=== PATIENT | male | born 1955 | race Caucasian/White ===

== ENCOUNTER 2016-04-28 13:18 | Day surgery (SDC) | payer OTHER ==
[~2016-04-28] VITALS: Ht 188 cm; Wt 95.3 kg
[~2016-04-28 13:18] MED LIST: AMITRIPTYLINE H25 MG; AMITRIPTYLINE H25 MG PO; AMITRIPTYLINE100 MG PO; Aspirin Chewable PO; BUSPIRONE HCL10 MG PO; CELEBREX200 MG PO; CELEXA40 MG PO; CITALOPRAM HBR20 MG PO; ELAVIL25 MG PO; ENDOCET 5-3251 EACH PO; Elavil PO; GABAPENTIN300 MG PO; HYDROCHLOROTHIA25 MG PO; HYDROCHLOROTHIAZIDE; HYDROXYZINE HCL25 MG PO; Hydrodiuril,Oretic,E PO; IBUPROFEN800 MG PO; KENALOG,ARISTOC15 GM TP; LISINOPRIL10 MG; LISINOPRIL20 MG PO; LOVENOX40 MG/0.4 SC; OPANA ER10 MG PO; OPANA ER20 MG PO; OXYCONTIN40 MG PO; OXYMORPHONE HCL10 M1 PO; Protonix PO; SENNA-TIME S T1 EACH PO; TRAZODONE HCL50 MG PO; VALIUM10 MG PO; Zestril,Prinivil PO
== END 2016-04-28 15:30 | disposition home or self-care (01) ==
LOC: PAIN 13:18 → SDC 13:45 → PAIN 15:30
DX: M47.892 Other spondylosis, cervical region (principal); M54.2 Cervicalgia; F41.1 Generalized anxiety disorder; I10 Essential (primary) hypertension; M25.50 Pain in unspecified joint; G89.29 Other chronic pain; F17.200 Nicotine dependence, unspecified, uncomplicated
CPT/HCPCS: J1030; J2250; J3010; S0020

== ENCOUNTER 2016-05-05 08:08 | Day surgery (SDC) | payer OTHER ==
[~2016-05-05] VITALS: Ht 188 cm; Wt 95.3 kg
[2016-05-09] MEDS ORDERED: NEXIUM20 MG PO (14:11)
[2016-05-21] MEDS ORDERED: ASPIRIN81 M2 PO (10:37)
== END 2016-05-05 10:09 | disposition home or self-care (01) ==
LOC: PAIN 08:08 → SDC 09:45 → PAIN 09:45
PROC: 3E0X3BZ Introduction of Anesthetic Agent into Cranial Nerves, Percutaneous Approach (ICD-10-PCS; principal; 2016-05-05)
PROC: 3E0X33Z Introduction of Anti-inflammatory into Cranial Nerves, Percutaneous Approach (ICD-10-PCS; principal; 2016-05-05)
DX: M47.812 Spondylosis without myelopathy or radiculopathy, cervical region (principal); M54.2 Cervicalgia; F41.9 Anxiety disorder, unspecified; F17.200 Nicotine dependence, unspecified, uncomplicated; I10 Essential (primary) hypertension; F32.9 Major depressive disorder, single episode, unspecified
CPT/HCPCS: J1030; J2250; J3010; S0020

== ENCOUNTER 2016-09-07 13:16 | Day surgery (SDC) | payer OTHER ==
[~2016-09-07] VITALS: Ht 188 cm; Wt 95.3 kg
[~2016-09-07 13:16] MED LIST changes: +ASPIRIN81 M2 PO; +MOBIC15 MG PO; +NAPROSYN500 MG PO; +NEXIUM20 MG PO; +ZESTRIL20 MG PO
== END 2016-09-07 14:49 | disposition home or self-care (01) ==
LOC: PAIN 13:16 → SDC 13:30 → PAIN 14:49
DX: M47.812 Spondylosis without myelopathy or radiculopathy, cervical region (principal); M54.2 Cervicalgia; I10 Essential (primary) hypertension; F32.9 Major depressive disorder, single episode, unspecified; F17.210 Nicotine dependence, cigarettes, uncomplicated
CPT/HCPCS: J1030; J2250; J3010; S0020

== ENCOUNTER 2016-09-14 11:15 | Day surgery (SDC) | payer OTHER ==
[~2016-09-14] VITALS: Ht 188 cm; Wt 95.5 kg
== END 2016-09-14 13:30 | disposition home or self-care (01) ==
LOC: PAIN 11:15 → SDC 12:00 → PAIN 13:30
DX: M47.812 Spondylosis without myelopathy or radiculopathy, cervical region (principal); M54.2 Cervicalgia; G89.29 Other chronic pain; M79.1 Myalgia; I10 Essential (primary) hypertension; F41.8 Other specified anxiety disorders; F17.210 Nicotine dependence, cigarettes, uncomplicated; K21.9 Gastro-esophageal reflux disease without esophagitis; B18.2 Chronic viral hepatitis C
CPT/HCPCS: J1030; J2250; J3010; S0020

== ENCOUNTER 2017-01-03 21:36 | Inpatient (IN) | payer OTHER ==
[~2017-01-03] VITALS: Ht 188 cm; Wt 95.8 kg
[~2017-01-03 21:36] MED LIST changes: +ATARAX,VISTARIL25 MG PO; +DAILY VALUE1 EACH PO; +ELAVIL50 MG PO; +NEURONTIN300 MG PO
[2017-01-04 10:20] VITALS: BP 118/86
[2017-01-04 17:52] VITALS: BP 112/75
[2017-01-04 19:55] VITALS: BP 116/80
[2017-01-05 00:16] VITALS: BP 170/66
[2017-01-05 04:18] VITALS: BP 116/76
[2017-01-05 05:07] LABS: HEMATOCRIT 34.3 % (38.0-50.0)
[2017-01-05 05:59] LABS: ANION GAP 7 MEQ/L (2-14); CHLORIDE 102 MEQ/L (99-109); GFR ESTIMATE (CALCULATED) 55 mL/min/; GLUCOSE 96 mg/dL (70-99); POTASSIUM 4.2 MEQ/L (3.7-5.4); SAMPLE HEMOLYSIS CHECK 0; SAMPLE ICTERIC CHECK 0; SAMPLE LIPEMIA CHECK 0; SODIUM 134 MEQ/L (136-147); UREA NITROGEN (BUN) 22 mg/dL (9-23)
[2017-01-05 07:10] VITALS: BP 115/76
[2017-01-05 11:45] VITALS: BP 118/64
[2017-01-05 15:58] VITALS: BP 118/65
[2017-01-05 20:22] VITALS: BP 130/80
[2017-01-06 00:16] VITALS: BP 111/79
[2017-01-06 04:31] VITALS: BP 132/84
[2017-01-06 05:37] LABS: HEMATOCRIT 34.8 % (38.0-50.0); MCV 91.3 FL (86-99)
[2017-01-06 08:14] VITALS: BP 123/76
[2017-01-06] MEDS ORDERED: ENDOCET 5-3251 EACH PO (08:49)
[2017-01-06] MEDS ORDERED: ELIQUIS2.5 MG PO (08:49)
[2017-01-06 11:55] VITALS: BP 114/59
== END 2017-01-06 14:05 | DRG 470 ==
LOC: ENRESERV 21:36 → 2SOUTH 01-04 07:45 → 3WEST 01-04 17:47
PROVIDERS: Orthopaedic Surgery
PROC: 0SRD0J9 Replacement of Left Knee Joint with Synthetic Substitute, Cemented, Open Approach (ICD-10-PCS; principal; 2017-01-04)
DX: M17.12 Unilateral primary osteoarthritis, left knee (principal); I10 Essential (primary) hypertension; Z96.651 Presence of right artificial knee joint; G89.29 Other chronic pain; K21.9 Gastro-esophageal reflux disease without esophagitis; F17.210 Nicotine dependence, cigarettes, uncomplicated; F41.9 Anxiety disorder, unspecified; F32.9 Major depressive disorder, single episode, unspecified
CPT/HCPCS: 80048; 85014; 85018; 97530 GO; C1713; J0131; J0690; J1100; J1170; J1885; J2060; J2250; J2405; J3010; J7050; J7120

== ENCOUNTER 2017-06-11 10:15 | Emergency (ER) | payer OTHER ==
[~2017-06-11] VITALS: Ht 188 cm; Wt 95.8 kg
[~2017-06-11 10:15] MED LIST changes: +ELIQUIS2.5 MG PO
[2017-06-11] MEDS ORDERED: MOTRIN800 MG PO (11:15)
[2017-06-11 11:25] VITALS: BP 123/98
== END 2017-06-11 11:33 | disposition home or self-care (01) ==
LOC: EME 10:15
DX: S20.211A Contusion of right front wall of thorax, initial encounter (principal); S46.911A Strain of unspecified muscle, fascia and tendon at shoulder and upper arm level, right arm, initial encounter; W10.9XXA Fall (on) (from) unspecified stairs and steps, initial encounter; M41.9 Scoliosis, unspecified; J98.11 Atelectasis; I10 Essential (primary) hypertension; F17.200 Nicotine dependence, unspecified, uncomplicated
CPT/HCPCS: 71046; 99281; 99284

== ENCOUNTER 2017-10-12 01:03 | Observation (INO) | payer OTHER ==
[~2017-10-12] VITALS: Ht 188 cm; Wt 88.8 kg
[~2017-10-12 01:03] MED LIST changes: +MOTRIN800 MG PO
[2017-10-12 01:27] LABS: HEMATOCRIT 39.5 % (38.0-50.0); HEMOGLOBIN 13.2 G/DL (12.5-16.6); MCH 29.1 PG (29.0-34.0); MCHC 33.4 G/DL (30.0-36.0); PLATELET COUNT 280 K/uL (156-360); RBC DIS.WIDTH-CV 13.5 % (11.8-14.6); RBC DIS.WIDTH-SD 42.5 % (39-53); RED BLOOD COUNT 4.54 M/uL (4.00-5.50); WHITE BLOOD COUNT 11.1 K/uL (4.1-10.2)
[2017-10-12 01:36] LABS: CHLORIDE 106 mEq/L (99-109); POTASSIUM 3.6 mEq/L (3.7-5.4); SODIUM 139 mEq/L (136-147)
[2017-10-12 01:37] LABS: GLUCOSE 102 mg/dL (70-99)
[2017-10-12 01:41] LABS: CREATININE 1.4 mg/dL (0.6-1.3); GFR ESTIMATE (CALCULATED) 54 mL/min/ (58.99-99999)
[2017-10-12 01:42] LABS: UREA NITROGEN (BUN) 16 mg/dL (9-23)
[2017-10-12 01:51] LABS: TROP-I INTERPRETATION NEGATIVE; TROPONIN-I < 0.01 ng/mL (0.0-0.30)
[2017-10-12 07:49] LABS: HEMATOCRIT 38.7 % (38.0-50.0); HEMOGLOBIN 12.8 G/DL (12.5-16.6); MCHC 33.1 G/DL (30.0-36.0); MCV 87.8 FL (86-99); PLATELET COUNT 266 K/uL (156-360); RBC DIS.WIDTH-CV 13.5 % (11.8-14.6); RBC DIS.WIDTH-SD 43.8 % (39-53); RED BLOOD COUNT 4.41 M/uL (4.00-5.50); WHITE BLOOD COUNT 9.3 K/uL (4.1-10.2)
[2017-10-12 08:13] LABS: ALBUMIN 3.8 G/DL (3.2-4.8); ALKALINE PHOSPHATASE 81 IU/L (3-129); ALT (GPT) 11 IU/L (3-49); AST (GOT) 16 IU/L (2-34); CHLORIDE 104 MEQ/L (99-109); CREATININE 1.4 MG/DL (0.6-1.3); GFR ESTIMATE (CALCULATED) 54 mL/min/ (58.99-99999); GLUCOSE 97 mg/dL (70-99); POTASSIUM 3.9 MEQ/L (3.7-5.4); SODIUM 139 MEQ/L (136-147); TOTAL BILIRUBIN 0.6 MG/DL (0.0-1.0); TOTAL PROTEIN 6.5 G/DL (6.4-8.3); UREA NITROGEN (BUN) 15 mg/dL (9-23)
[2017-10-12 08:23] VITALS: BP 136/86
[2017-10-12 08:23] LABS: TROP-I INTERPRETATION NEGATIVE; TROPONIN-I < 0.01 ng/mL (0.0-0.30)
[2017-10-12] MEDS ORDERED: CELEXA20 MG PO (10:01)
[2017-10-12] MEDS ORDERED: ASPIR-LOW81 MG PO (13:55)
[2017-10-12] MEDS ORDERED: CEPHALEXIN500 MG PO (13:56)
[2017-10-12 14:33] LABS: TROP-I INTERPRETATION NEGATIVE; TROPONIN-I < 0.01 ng/mL (0.0-0.30)
[2017-10-12 14:35] VITALS: BP 112/60
== END 2017-10-12 15:31 | disposition home or self-care (01) ==
LOC: EME 01:03 → EDOF 05:43 → ENRESERV 05:44 → 4SOUTH 07:12
PROVIDERS: Internal Medicine
DX: R07.9 Chest pain, unspecified (principal); S91.105A Unspecified open wound of left lesser toe(s) without damage to nail, initial encounter; M79.661 Pain in right lower leg; I12.9 Hypertensive chronic kidney disease with stage 1 through stage 4 chronic kidney disease, or unspecified chronic kidney disease; N18.3 Chronic kidney disease, stage 3 (moderate); K21.9 Gastro-esophageal reflux disease without esophagitis; F32.9 Major depressive disorder, single episode, unspecified; F14.10 Cocaine abuse, uncomplicated; Z96.651 Presence of right artificial knee joint; F17.210 Nicotine dependence, cigarettes, uncomplicated; E87.6 Hypokalemia
CPT/HCPCS: 71046; 71275; 73660; 80048; 80053; 84484; 85027; 85379; 93005; 93971; 99281; 99285; G0378; J1644; J2270; J7030